=== PATIENT | male | born 1940 | race Caucasian/White ===

== ENCOUNTER 2017-05-15 08:14 | Outpatient (CLI) | payer MEDICARE, OTHER ==
--- NOTE | 2017-05-15 10:49 | CT ---
ABDOMEN CT WITH AND WITHOUT CONTRAST PELVIC CT WITH AND WITHOUT CONTRAST: History: Microscopic hematuria. Comparison: None. Technique: Abdomen and pelvis CT are performed with IV contrast. Coronal reformatted images are perf ormed. FINDINGS: ABDOMEN CT: Chronic changes and dependent atelectatic changes in the lung bases. Heart size is within normal [place] its. No significant pericardial fluid. Coronal calcifications are identified. The descending thoraci c aorta and abdominal aorta have a normal caliber. There is atherosclerosis. No periaortic fat stran ding. Symmetric attenuation of the psoas muscles. Gallbladder surgically absent. Liver, spleen, pancreas, and adrenal glands have appropriate enhancement. No gastrohepatic or retrocrural lymphadenopathy. No mesenteric mass, lymphadenopathy, free air or free fluid. Limited evaluation of the alimentary canal due to lack of oral contrast. Normal caliber bowel loops. No evidence of bowel obstruction. Ileocecal junction is normal. Appendix is not appreciated. No inf lammation of the cecal apex. Scattered fecal material in a nondistended, nondilated colon. Sigmoid c olon diverticulosis, without evidence of diverticulitis. Bilaterally, no hydronephrosis or nephrolithiasis. There is minimal nonspecific bilateral perinephri c fat stranding. Emanating from the lower pole of the left kidney is a 4.8 x 5.0 cm cyst. Emanating from the superior aspect of the left kidney is a 10.5 x 10.2 cm cyst. There is symmetric enhancement of the kidneys. On the post contrast images, there is a subcentimeter hypodensity in the inferior p ole left kidney measuring 1 cm and too small to characterize. There is symmetric excretion into norm al appearing bilateral intrarenal collecting systems. Bilateral ureters have a normal caliber. No hy droureter, periureteral fat stranding or ureterolithiasis. There are no filling defects on the delay ed images. PELVIC CT: There is mass effect upon the floor of the urinary bladder due to prostatic hypertrophy. No mucosal abnormalities. No pelvic mass, lymphadenopathy, free air or free fluid. There are no osteoblastic or osteolytic lesions. IMPRESSION: No evidence of nephrolithiasis or obstructive uropathy. 2. Mass effect upon the floor of the urinary bladder due to prostatic hypertrophy. No obvious mucosa l abnormality. If there is concern, consider cystoscopy. 3. Left renal cyst. 4. Indeterminate hyperdensity in the lower pole left kidney, too small to further characterize. 5. Diverticulosis without evidence of diverticulitis. POS: [id number]
[2017-05-15] MEDS ORDERED: Iopamidol 370 76% 100 ML VIAL ONE (15:23)
== END 2017-05-15 08:15 | disposition home or self-care (01) ==
LOC: CT 08:14
PROVIDERS: ATTEND Urology
DX: R31.29 Other microscopic hematuria (principal); N40.0 Benign prostatic hyperplasia without lower urinary tract symptoms; N28.1 Cyst of kidney, acquired; K57.90 Diverticulosis of intestine, part unspecified, without perforation or abscess without bleeding
CPT/HCPCS: 74178

== ENCOUNTER 2021-03-15 17:59 | Inpatient (IN) | payer MEDICARE, OTHER ==
[2021-03-15 18:19] LABS: #Eosinphils 0.3 thou/uL (0.0-0.7); #Lymphocytes 2.1 thou/uL (1.20-3.40); #Monocytes 0.8 thou/uL (0.11-0.59); #Neutrophils 5.2 thou/uL (1.40-6.50); %Basophils 0.3 % (0.0-1.0); %Lymphocytes 25.2 % (21.0-51.0); %Monocytes 9.1 % (0.0-10.0); %Neutrophils 62.3 % (42.0-75.0); Hemoglobin 13.1 g/dL (14.0-18.0); Mean Corpuscular HGB CONC 33.8 g/dL (32.0-36.0); Mean Corpuscular Hemoglobin 30.8 pg (27.0-31.0); Mean Platelet Volume 7.7 fL (7.4-10.4); Platelet Count 156 thou/uL (130-400); RBC Distribution Width 12.8 % (11.5-14.5); Red Blood Cell (RBC) Count 4.24 mill/uL (4.70-6.10); White Blood Cell (WBC) Count 8.3 thou/uL (4.8-10.8)
[2021-03-15 18:29] LABS: Prothrombin Time 14.1 sec (12.0-14.7)
[2021-03-15 18:30] LABS: PTT 33.5 sec (22.9-36.1)
[2021-03-15 18:31] LABS: INR-International Normal Ratio 1.1
[2021-03-15 18:34] LABS: ALT (SGPT) 15 U/L (8-55); AST (SGOT) 14 U/L (5-34); Albumin 3.4 g/dL (3.4-4.8); Alkaline Phosphatase 66 U/L (40-110); Anion Gap 12 mmol/L (10-20); BUN (Urea Nitrogen) 25 mg/dL (8.4-25.7); Bilirubin, Total 0.3 mg/dL (0.2-1.2); CK (CPK) 99 U/L (30-200); Calc. Creatinine Clearance 0 mL/min (70-130); Calcium 8.7 mg/dL (7.8-10.44); Carbon Dioxide 24 mmol/L (23-31); Chloride 106 mmol/L (98-107); Globulin 2.6 g/dL (2.4-3.5); Glucose 150 mg/dL (83-110); Potassium 3.5 mmol/L (3.5-5.1); Sodium 138 mmol/L (136-145)
[2021-03-15] MEDS ORDERED: Aspirin Chewable 81 MG TAB ONE (19:17)
[2021-03-15] MEDS ORDERED: Acetaminophen 325 MG TAB PO PRN (23:10)
[2021-03-15] MEDS ORDERED: hydrALAZINE 20 MG/ML VIAL SLOW IVP PRN (23:10)
[2021-03-15 23:12] LABS: SARS-CoV-2 NAA Rapid Test Not Detected (NotDetected)
[2021-03-15 23:39] VITALS: BMI 34.5
[2021-03-16] MEDS ORDERED: Atropine Sulfate 1 mg/10 ml Syringe ONE (01:42)
[2021-03-16] MEDS ORDERED: Atropine Sulfate 1 mg/1 ml Vial IVP SCH (01:45)
[2021-03-16] MEDS ORDERED: Aspirin Chewable 81 MG TAB ONE (08:20)
[2021-03-16] MEDS ORDERED: Enoxaparin Sodium 30 MG/0.3 ML SYRINGE ONE (08:20)
[2021-03-16 09:09] LABS: #Eosinphils 0.2 thou/uL (0.0-0.7); #Lymphocytes 1.5 thou/uL (1.20-3.40); #Monocytes 0.6 thou/uL (0.11-0.59); #Neutrophils 5.6 thou/uL (1.40-6.50); %Basophils 0.2 % (0.0-1.0); %Lymphocytes 18.8 % (21.0-51.0); %Monocytes 7.6 % (0.0-10.0); %Neutrophils 70.4 % (42.0-75.0); Hemoglobin 15.2 g/dL (14.0-18.0); Mean Corpuscular HGB CONC 32.9 g/dL (32.0-36.0); Mean Corpuscular Volume 91.2 fL (78.0-98.0); Mean Platelet Volume 7.9 fL (7.4-10.4); Platelet Count 152 thou/uL (130-400); RBC Distribution Width 12.9 % (11.5-14.5); Red Blood Cell (RBC) Count 5.07 mill/uL (4.70-6.10)
[2021-03-16 09:19] LABS: Hemoglobin A1c 5.4 % (4.0-6.0)
[2021-03-16 09:36] LABS: Anion Gap 10 mmol/L (10-20); BUN (Urea Nitrogen) 18 mg/dL (8.4-25.7); Calc. Creatinine Clearance 72 mL/min (70-130); Calcium 9.5 mg/dL (7.8-10.44); Carbon Dioxide 29 mmol/L (23-31); Cardiac Risk 3.2 (Less than 4.5); Chloride 104 mmol/L (98-107); Cholesterol 117 mg/dl (< 200 Desired); Glucose 94 mg/dL (83-110); HDL Cholesterol 37 mg/dL (>60 Neg Risk); Iron 53 ug/dL (65-175); Iron Binding Capacity, Total 275 mcg/dL (261-462); LDL Cholesterol, Calculated 59 mg/dL; Potassium 3.6 mmol/L (3.5-5.1); Sodium 139 mmol/L (136-145); Triglycerides 103 mg/dL (Less than 150)
[2021-03-16 09:37] LABS: Iron 48 ug/dL (65-175); Iron Binding Capacity, Total 278 mcg/dL (261-462)
[2021-03-16] MEDS: Aspirin 81 mg Enteric Coated Tablet PO SCH (09:38)
[2021-03-16] MEDS: Enoxaparin Sodium 30 MG/0.3 ML SYRINGE SC SCH (09:38)
[2021-03-16 09:54] LABS: Ferritin 461.7 ng/mL (22-322); Thyroid Stimulating Hormone 0.6782 uIU/mL (0.35-4.94)
[2021-03-16 15:15] LABS: #Eosinphils 0.3 thou/uL (0.0-0.7); #Lymphocytes 1.8 thou/uL (1.20-3.40); #Monocytes 0.8 thou/uL (0.11-0.59); #Neutrophils 6.9 thou/uL (1.40-6.50); %Basophils 0.1 % (0.0-1.0); %Eosinophils 3.5 % (0.0-10.0); %Monocytes 8.2 % (0.0-10.0); %Neutrophils 70.2 % (42.0-75.0); Hemoglobin 15.2 g/dL (14.0-18.0); Mean Platelet Volume 7.6 fL (7.4-10.4); Platelet Count 158 thou/uL (130-400); RBC Distribution Width 12.9 % (11.5-14.5); Red Blood Cell (RBC) Count 4.91 mill/uL (4.70-6.10); White Blood Cell (WBC) Count 9.8 thou/uL (4.8-10.8)
[2021-03-16 15:38] LABS: ALT (SGPT) 16 U/L (8-55); AST (SGOT) 16 U/L (5-34); Albumin 3.8 g/dL (3.4-4.8); Alkaline Phosphatase 70 U/L (40-110); Anion Gap 12 mmol/L (10-20); BUN (Urea Nitrogen) 18 mg/dL (8.4-25.7); Bilirubin, Total 0.5 mg/dL (0.2-1.2); Calc. Creatinine Clearance 66 mL/min (70-130); Calcium 9.4 mg/dL (7.8-10.44); Carbon Dioxide 26 mmol/L (23-31); Chloride 105 mmol/L (98-107); Globulin 3.1 g/dL (2.4-3.5); Glucose 104 mg/dL (83-110); Potassium 3.7 mmol/L (3.5-5.1); Protein, Total 6.9 g/dL (5.8-8.1); Sodium 139 mmol/L (136-145)
[2021-03-16] MEDS ORDERED: Atorvastatin Calcium 40 MG TAB PO SCH (21:00)
[2021-03-17 05:41] LABS: #Basophils 0.1 thou/uL (0.0-0.2); #Eosinphils 0.4 thou/uL (0.0-0.7); #Lymphocytes 2.1 thou/uL (1.20-3.40); #Monocytes 0.9 thou/uL (0.11-0.59); #Neutrophils 5.7 thou/uL (1.40-6.50); %Basophils 0.6 % (0.0-1.0); %Eosinophils 3.9 % (0.0-10.0); %Lymphocytes 22.7 % (21.0-51.0); %Monocytes 9.4 % (0.0-10.0); %Neutrophils 63.4 % (42.0-75.0); Hemoglobin 14.7 g/dL (14.0-18.0); Mean Corpuscular HGB CONC 33.2 g/dL (32.0-36.0); Mean Corpuscular Hemoglobin 30.3 pg (27.0-31.0); Mean Corpuscular Volume 91.2 fL (78.0-98.0); Mean Platelet Volume 7.7 fL (7.4-10.4); Platelet Count 145 thou/uL (130-400); RBC Distribution Width 12.8 % (11.5-14.5); Red Blood Cell (RBC) Count 4.85 mill/uL (4.70-6.10); White Blood Cell (WBC) Count 9.1 thou/uL (4.8-10.8)
[2021-03-17 05:59] LABS: Anion Gap 7 mmol/L (10-20); BUN (Urea Nitrogen) 16 mg/dL (8.4-25.7); Calc. Creatinine Clearance 72 mL/min (70-130); Carbon Dioxide 31 mmol/L (23-31); Chloride 106 mmol/L (98-107); Potassium 4.4 mmol/L (3.5-5.1); Sodium 140 mmol/L (136-145)
[2021-03-17 06:00] LABS: ALT (SGPT) 15 U/L (8-55); AST (SGOT) 15 U/L (5-34); Albumin 3.5 g/dL (3.4-4.8); Alkaline Phosphatase 66 U/L (40-110); Bilirubin, Total 0.4 mg/dL (0.2-1.2); Calcium 9.4 mg/dL (7.8-10.44); Globulin 2.9 g/dL (2.4-3.5); Glucose 93 mg/dL (83-110); Protein, Total 6.4 g/dL (5.8-8.1)
[2021-03-17 08:03] VITALS: BP 156/85; TEMP 97.7
[2021-03-17] MEDS: Enoxaparin Sodium 30 MG/0.3 ML SYRINGE SC SCH (08:25)
[2021-03-17] MEDS: Aspirin 81 mg Enteric Coated Tablet PO SCH (08:25)
[2021-03-18] MEDS ORDERED: Aspirin Chewable 81 MG TAB PO SCH (09:00)
== END 2021-03-17 09:36 | disposition home or self-care (01) | DRG 69 ==
LOC: ERS 17:59 → ERHOLD 21:36 → 3SE 03-16 18:38
PROVIDERS: ADMIT Internal Medicine; ATTEND Student in an Organized Health Care Education/Training Program
DX: G45.9 Transient cerebral ischemic attack, unspecified (principal); G93.41 Metabolic encephalopathy; N18.30 Chronic kidney disease, stage 3 unspecified; N40.0 Benign prostatic hyperplasia without lower urinary tract symptoms; E03.9 Hypothyroidism, unspecified; I44.0 Atrioventricular block, first degree; D63.1 Anemia in chronic kidney disease; E66.9 Obesity, unspecified; Z20.822 Contact with and (suspected) exposure to COVID-19; I25.10 Atherosclerotic heart disease of native coronary artery without angina pectoris; E78.5 Hyperlipidemia, unspecified; I12.9 Hypertensive chronic kidney disease with stage 1 through stage 4 chronic kidney disease, or unspecified chronic kidney disease; F03.90 Unspecified dementia, unspecified severity, without behavioral disturbance, psychotic disturbance, mood disturbance, and anxiety; Z82.49 Family history of ischemic heart disease and other diseases of the circulatory system; Z68.34 Body mass index [BMI] 34.0-34.9, adult; Z86.73 Personal history of transient ischemic attack (TIA), and cerebral infarction without residual deficits; Z95.5 Presence of coronary angioplasty implant and graft; Z90.49 Acquired absence of other specified parts of digestive tract; Z87.891 Personal history of nicotine dependence; Z79.82 Long term (current) use of aspirin; Z79.51 Long term (current) use of inhaled steroids; Z79.899 Other long term (current) drug therapy
CPT/HCPCS: 36415; 36416; 70450; 70551; 80048; 80053; 80061; 82550; 82728; 83036; 83540; 83550; 84443; 84484; 85025; 85610; 85730; 86850; 86900; 86901; 93005; 93880; J0461; J1650; U0002

== ENCOUNTER 2023-03-14 18:57 | Inpatient (IN) | payer MEDICARE, OTHER ==
[2023-03-14 21:00] LABS: #Basophils 0.1 thou/uL (0.0-0.2); #Eosinphils 0.5 thou/uL (0.0-0.7); #Monocytes 0.9 thou/uL (0.11-0.59); #Neutrophils 5.9 thou/uL (1.40-6.50); %Basophils 0.5 % (0.0-1.0); %Eosinophils 4.8 % (0.0-10.0); %Lymphocytes 30.1 % (21.0-51.0); %Monocytes 8.2 % (0.0-10.0); Hemoglobin 13.5 g/dL (14.0-18.0); Mean Corpuscular HGB CONC 32.1 g/dL (32.0-36.0); Mean Corpuscular Hemoglobin 29.4 pg (27.0-31.0); Mean Corpuscular Volume 91.5 fl (78.0-98.0); Mean Platelet Volume 9.8 fL (7.4-10.4); Platelet Count 190 10x3/uL (130-400); RBC Distribution Width 14.9 % (11.5-14.5); Red Blood Cell (RBC) Count 4.59 mill/uL (4.70-6.10); White Blood Cell (WBC) Count 10.6 10x3/uL (4.8-10.8)
[2023-03-14 21:29] LABS: Bacteria/HPF 4+ HPF (None Seen); Bilirubin Negative (Negative); Blood, Urine 3+ (Negative); CAUTI Indications for Culture Alt mental st,lethar; Clarity Extra Turbid (Clear); Glucose, Urine (Dipstick) Normal (Negative); Ketone, Urine Negative (Negative); Leukocyte 500 Leu/uL (Negative); Nitrite Negative (Negative); Protein, Urine (Dipstick) 300 mg/dL (Neg-Trace); RBC/HPF Greater than 50 HPF (0-3); Squamous Epithelial None Seen HPF (0-3); Urobilinogen Normal mg/dL (Less than 2); WBC/HPF Greater than 50 HPF (0-3)
[2023-03-14 21:31] LABS: Urine Culture Reflex Yes Yes
[2023-03-14 21:42] LABS: ALT (SGPT) 9 U/L (8-55); AST (SGOT) 13 U/L (5-34); Albumin 3.8 g/dL (3.4-4.8); Alkaline Phosphatase 91 U/L (40-110); Anion Gap 16 mmol/L (10-20); BUN (Urea Nitrogen) 27 mg/dL (8.4-25.7); Bilirubin, Total 0.4 mg/dL (0.2-1.2); Calc. Creatinine Clearance 0 mL/min (70-130); Calcium 9.4 mg/dL (7.8-10.44); Carbon Dioxide 21 mmol/L (23-31); Chloride 103 mmol/L (98-107); Estimated GFR 30; Globulin 2.9 g/dL (2.4-3.5); Glucose 109 mg/dL (83-110); Potassium 3.6 mmol/L (3.5-5.1); Protein, Total 6.7 g/dL (5.8-8.1); Sodium 136 mmol/L (136-145)
[2023-03-14] MEDS ORDERED: Vancomycin 1 GM/200 ML (FROZEN) BAG ONE (23:09)
[2023-03-14] MEDS ORDERED: Cefepime 2 GM VIAL ONE (23:09)
[2023-03-15] MEDS ORDERED: Senokot S 8.6-50 MG TAB PO PRN (01:08)
[2023-03-15] MEDS ORDERED: Ondansetron ODT 4 MG TAB PO PRN (01:08)
[2023-03-15 01:13] VITALS: BMI 29.1
[2023-03-15] MEDS: Levothyroxine Sodium 75 MCG TAB PO SCH (05:53)
[2023-03-15 09:53] LABS: #Basophils 0.1 thou/uL (0.0-0.2); #Eosinphils 0.7 thou/uL (0.0-0.7); #Monocytes 0.7 thou/uL (0.11-0.59); %Basophils 0.6 % (0.0-1.0); %Eosinophils 8.2 % (0.0-10.0); %Lymphocytes 23.6 % (21.0-51.0); %Monocytes 7.8 % (0.0-10.0); %Neutrophils 59.4 % (42.0-75.0); Hemoglobin 12.7 g/dL (14.0-18.0); Mean Corpuscular HGB CONC 31.8 g/dL (32.0-36.0); Mean Corpuscular Hemoglobin 28.9 pg (27.0-31.0); Mean Corpuscular Volume 91.1 fl (78.0-98.0); Mean Platelet Volume 10.2 fL (7.4-10.4); Platelet Count 149 10x3/uL (130-400); RBC Distribution Width 14.9 % (11.5-14.5); Red Blood Cell (RBC) Count 4.39 mill/uL (4.70-6.10); White Blood Cell (WBC) Count 8.4 10x3/uL (4.8-10.8)
[2023-03-15 10:16] LABS: Anion Gap 12 mmol/L (10-20); BUN (Urea Nitrogen) 22 mg/dL (8.4-25.7); Calc. Creatinine Clearance 44 mL/min (70-130); Calcium 9.4 mg/dL (7.8-10.44); Carbon Dioxide 23 mmol/L (23-31); Chloride 108 mmol/L (98-107); Estimated GFR 42; Glucose 110 mg/dL (83-110); Potassium 3.4 mmol/L (3.5-5.1); Sodium 140 mmol/L (136-145)
[2023-03-15] MEDS: cefTRIAXone\\ROCEPHIN 1 GM in Sodium Chloride 0.9% 100 ML IVPB SCH (10:20)
[2023-03-15] MEDS: Tamsulosin HCl 0.4 MG CAP PO SCH (10:20)
[2023-03-15] MEDS: Sertraline 100 MG TAB PO SCH (10:20)
[2023-03-15] MEDS: Losartan 25 MG TAB PO SCH (10:21)
[2023-03-15] MEDS: Cholecalciferol 1,000 UNITS (25 MCG) TAB PO SCH (10:21)
[2023-03-15] MEDS: Famotidine 20 MG TAB PO SCH (10:21)
[2023-03-15] MEDS: Aspirin 81 mg Enteric Coated Tablet PO SCH (10:21)
[2023-03-15] MEDS: DorzolamidE/Timolol 2%/0.5% Ophth Soln 10 ml Bottle EA EYE SCH ×2 (10:29→21:28)
[2023-03-15] MEDS ORDERED: Potassium Chloride 20 MEQ TAB PO SCH (17:00)
[2023-03-15] MEDS: Donepezil HCl 10 MG TAB PO SCH (21:27)
[2023-03-15] MEDS: Atorvastatin Calcium 20 MG TAB PO SCH (21:27)
[2023-03-16] MEDS: Levothyroxine Sodium 75 MCG TAB PO SCH (06:02)
[2023-03-16] MEDS: Cholecalciferol 1,000 UNITS (25 MCG) TAB PO SCH (08:33)
[2023-03-16] MEDS: cefTRIAXone\\ROCEPHIN 1 GM in Sodium Chloride 0.9% 100 ML IVPB SCH (08:33)
[2023-03-16] MEDS: Aspirin 81 mg Enteric Coated Tablet PO SCH (08:34)
[2023-03-16] MEDS: DorzolamidE/Timolol 2%/0.5% Ophth Soln 10 ml Bottle EA EYE SCH ×2 (08:34→22:06)
[2023-03-16] MEDS: Famotidine 20 MG TAB PO SCH (08:34)
[2023-03-16] MEDS: Losartan 25 MG TAB PO SCH (08:34)
[2023-03-16] MEDS: Tamsulosin HCl 0.4 MG CAP PO SCH (08:34)
[2023-03-16 09:00] LABS: Anion Gap 10 mmol/L (10-20); BUN (Urea Nitrogen) 15 mg/dL (8.4-25.7); Calc. Creatinine Clearance 52 mL/min (70-130); Calcium 9.3 mg/dL (7.8-10.44); Carbon Dioxide 24 mmol/L (23-31); Chloride 110 mmol/L (98-107); Estimated GFR 50; Glucose 91 mg/dL (83-110); Potassium 4.3 mmol/L (3.5-5.1); Sodium 140 mmol/L (136-145)
[2023-03-16] MEDS: Sertraline 100 MG TAB PO SCH (10:13)
[2023-03-16] MEDS ORDERED: CefTAZidime\\FORTAZ 1 GM in Sodium Chloride 0.9% 100 ML IVPB SCH (14:00)
[2023-03-16] MEDS: Cefepime 1 GM in Sodium Chloride 0.9% 100 ML IVPB SCH (14:58)
[2023-03-16] MEDS: Donepezil HCl 10 MG TAB PO SCH (22:05)
[2023-03-16] MEDS: Atorvastatin Calcium 20 MG TAB PO SCH (22:06)
[2023-03-17] MEDS: Cefepime 1 GM in Sodium Chloride 0.9% 100 ML IVPB SCH ×2 (03:04→17:24)
[2023-03-17] MEDS: Levothyroxine Sodium 75 MCG TAB PO SCH (05:59)
[2023-03-17] MEDS: Aspirin 81 mg Enteric Coated Tablet PO SCH (08:05)
[2023-03-17] MEDS: Sertraline 100 MG TAB PO SCH (08:05)
[2023-03-17] MEDS: Famotidine 20 MG TAB PO SCH (08:05)
[2023-03-17] MEDS: Cholecalciferol 1,000 UNITS (25 MCG) TAB PO SCH (08:05)
[2023-03-17] MEDS: DorzolamidE/Timolol 2%/0.5% Ophth Soln 10 ml Bottle EA EYE SCH ×2 (08:05→21:05)
[2023-03-17] MEDS: Tamsulosin HCl 0.4 MG CAP PO SCH (08:05)
[2023-03-17] MEDS: Losartan 25 MG TAB PO SCH (08:11)
[2023-03-17] MEDS: Atorvastatin Calcium 20 MG TAB PO SCH (20:46)
[2023-03-17] MEDS: Donepezil HCl 10 MG TAB PO SCH (20:46)
[2023-03-18] MEDS: Cefepime 1 GM in Sodium Chloride 0.9% 100 ML IVPB SCH ×2 (03:00→14:44)
[2023-03-18] MEDS: Levothyroxine Sodium 75 MCG TAB PO SCH (05:38)
[2023-03-18] MEDS: Cholecalciferol 1,000 UNITS (25 MCG) TAB PO SCH (08:32)
[2023-03-18] MEDS: Tamsulosin HCl 0.4 MG CAP PO SCH (08:33)
[2023-03-18] MEDS: Sertraline 100 MG TAB PO SCH (08:33)
[2023-03-18] MEDS: Losartan 25 MG TAB PO SCH (08:33)
[2023-03-18] MEDS: Aspirin 81 mg Enteric Coated Tablet PO SCH (08:33)
[2023-03-18] MEDS: Famotidine 20 MG TAB PO SCH (08:33)
[2023-03-18] MEDS: DorzolamidE/Timolol 2%/0.5% Ophth Soln 10 ml Bottle EA EYE SCH ×2 (08:33→20:32)
[2023-03-18] MEDS ORDERED: hydrALAZINE 25 MG TAB PO PRN (11:09)
[2023-03-18] MEDS ORDERED: Sodium Chloride 0.9% 1,000 ML IV SCH (14:15)
[2023-03-18 19:35] VITALS: BP 150/79; TEMP 97.2
[2023-03-18] MEDS: Atorvastatin Calcium 20 MG TAB PO SCH (20:32)
[2023-03-18] MEDS: Donepezil HCl 10 MG TAB PO SCH (20:32)
== END 2023-03-18 21:00 | disposition home or self-care (01) | DRG 683 ==
LOC: ERS 18:57 → T4-B 23:38
PROVIDERS: ADMIT Student in an Organized Health Care Education/Training Program; ATTEND Internal Medicine
DX: N17.9 Acute kidney failure, unspecified (principal); E87.20 Acidosis, unspecified; N13.8 Other obstructive and reflux uropathy; E86.9 Volume depletion, unspecified; I95.9 Hypotension, unspecified; I25.10 Atherosclerotic heart disease of native coronary artery without angina pectoris; E78.5 Hyperlipidemia, unspecified; F03.90 Unspecified dementia, unspecified severity, without behavioral disturbance, psychotic disturbance, mood disturbance, and anxiety; H40.9 Unspecified glaucoma; I12.9 Hypertensive chronic kidney disease with stage 1 through stage 4 chronic kidney disease, or unspecified chronic kidney disease; E87.6 Hypokalemia; Y83.8 Other surgical procedures as the cause of abnormal reaction of the patient, or of later complication, without mention of misadventure at the time of the procedure; N40.1 Benign prostatic hyperplasia with lower urinary tract symptoms; Z95.5 Presence of coronary angioplasty implant and graft; Z86.73 Personal history of transient ischemic attack (TIA), and cerebral infarction without residual deficits; Z90.49 Acquired absence of other specified parts of digestive tract; Z98.890 Other specified postprocedural states
CPT/HCPCS: 36415; 71045; 76857; 80048; 80053; 81001; 83605; 85025; 87040; 87086; 93005; 96361; 96365; 96366; J0692; J0696; J1650; J3370-JW; J3490; J7050

== ENCOUNTER 2023-06-05 02:29 | Inpatient (IN) | payer MEDICARE, OTHER ==
[2023-06-05 03:26] LABS: #Monocytes 0.7 thou/uL (0.11-0.59); #Neutrophils 16.1 thou/uL (1.40-6.50); %Basophils 0.2 % (0.0-1.0); %Eosinophils 0.2 % (0.0-10.0); %Lymphocytes 2.2 % (21.0-51.0); %Monocytes 4.3 % (0.0-10.0); %Neutrophils 92.4 % (42.0-75.0); Hematocrit 45.1 % (42.0-52.0); Hemoglobin 14.2 g/dL (14.0-18.0); Mean Corpuscular HGB CONC 31.5 g/dL (32.0-36.0); Mean Corpuscular Hemoglobin 28.7 pg (27.0-31.0); Mean Corpuscular Volume 91.3 fl (78.0-98.0); Mean Platelet Volume 9.3 fL (7.4-10.4); Platelet Count 190 10x3/uL (130-400); RBC Distribution Width 14.6 % (11.5-14.5); Red Blood Cell (RBC) Count 4.94 mill/uL (4.70-6.10); White Blood Cell (WBC) Count 17.4 10x3/uL (4.8-10.8)
[2023-06-05 03:37] LABS: INR-International Normal Ratio 1.1; Prothrombin Time 14.2 sec (12.0-14.7)
[2023-06-05 03:47] LABS: ALT (SGPT) 14 U/L (8-55); AST (SGOT) 16 U/L (5-34); Alkaline Phosphatase 86 U/L (40-110); Anion Gap 15 mmol/L (10-20); BUN (Urea Nitrogen) 15 mg/dL (8.4-25.7); Bilirubin, Total 0.8 mg/dL (0.2-1.2); Calc. Creatinine Clearance 0 mL/min (70-130); Calcium 9.5 mg/dL (7.8-10.44); Carbon Dioxide 24 mmol/L (23-31); Chloride 104 mmol/L (98-107); Estimated GFR 52; Globulin 2.9 g/dL (2.4-3.5); Glucose 108 mg/dL (83-110); Magnesium 1.8 mg/dL (1.6-2.6); Potassium 3.1 mmol/L (3.5-5.1); Protein, Total 6.9 g/dL (5.8-8.1); Sodium 140 mmol/L (136-145)
[2023-06-05 03:50] LABS: Troponin I Less than 0.010 ng/mL (< 0.028)
[2023-06-05] MEDS ORDERED: Potassium Chloride 20 MEQ TAB ONE (04:06)
[2023-06-05 04:13] LABS: Bacteria/HPF 4+ HPF (None Seen); Bilirubin Negative (Negative); Blood, Urine 3+ (Negative); CAUTI Indications for Culture Alt mental st,lethar; Clarity Extra Turbid (Clear); Glucose, Urine (Dipstick) Normal (Negative); Ketone, Urine Negative (Negative); Leukocyte 500 Leu/uL (Negative); Nitrite 2+ (Negative); Protein, Urine (Dipstick) 30 mg/dL (Neg-Trace); RBC/HPF Greater than 50 HPF (0-3); Specific Gravity, Urine 1.011 (1.002-1.036); Squamous Epithelial None Seen HPF (0-3); Urobilinogen Normal mg/dL (Less than 2); WBC/HPF Greater than 50 HPF (0-3)
[2023-06-05 04:14] LABS: Urine Culture Reflex Yes Yes
[2023-06-05] MEDS ORDERED: Acetaminophen 650 MG Suppository PR PRN (05:09)
[2023-06-05] MEDS ORDERED: Ondansetron ODT 4 MG TAB PO PRN (05:09)
[2023-06-05] MEDS ORDERED: Ondansetron PF 4 MG/2 ML Vial IVP PRN (05:09)
[2023-06-05] MEDS ORDERED: Acetaminophen 325 MG TAB PO PRN (05:09)
[2023-06-05] MEDS ORDERED: cefTRIAXone (ROCEPHIN) 2 GM VIAL ONE (05:59)
[2023-06-05] MEDS ORDERED: Sodium Chloride 0.9% 100 ML ONE (05:59)
[2023-06-05 06:14] VITALS: BMI 30.8
[2023-06-05] MEDS: Sodium Chloride 0.9% 1,000 ML IV SCH ×2 (07:22→15:00)
[2023-06-05] MEDS ORDERED: Potassium Bicarbonate/Cit Ac 20 MEQ TAB PO SCH (08:15)
[2023-06-05] MEDS ORDERED: Potassium Bicarbonate/Cit Ac 20 MEQ TAB ONE (09:04)
[2023-06-05] MEDS: Melatonin 3 MG TAB PO PRN (23:23)
[2023-06-06] MEDS: cefTRIAXone\\ROCEPHIN 1 GM in Sodium Chloride 0.9% 100 ML IVPB SCH (04:27)
[2023-06-06 05:45] LABS: #Basophils 0.1 thou/uL (0.0-0.2); #Eosinphils 0.4 thou/uL (0.0-0.7); #Monocytes 1.2 thou/uL (0.11-0.59); #Neutrophils 7.6 thou/uL (1.40-6.50); %Basophils 0.4 % (0.0-1.0); %Eosinophils 3.9 % (0.0-10.0); %Lymphocytes 17.4 % (21.0-51.0); %Monocytes 10.2 % (0.0-10.0); %Neutrophils 67.7 % (42.0-75.0); Hematocrit 36.8 % (42.0-52.0); Hemoglobin 11.7 g/dL (14.0-18.0); Mean Corpuscular HGB CONC 31.8 g/dL (32.0-36.0); Mean Corpuscular Hemoglobin 28.9 pg (27.0-31.0); Mean Corpuscular Volume 90.9 fl (78.0-98.0); Mean Platelet Volume 9.8 fL (7.4-10.4); Platelet Count 161 10x3/uL (130-400); RBC Distribution Width 14.7 % (11.5-14.5); Red Blood Cell (RBC) Count 4.05 mill/uL (4.70-6.10); White Blood Cell (WBC) Count 11.3 10x3/uL (4.8-10.8)
[2023-06-06 06:03] LABS: Anion Gap 11 mmol/L (10-20); BUN (Urea Nitrogen) 18 mg/dL (8.4-25.7); Calc. Creatinine Clearance 61 mL/min (70-130); Calcium 8.6 mg/dL (7.8-10.44); Carbon Dioxide 25 mmol/L (23-31); Chloride 105 mmol/L (98-107); Estimated GFR 57; Glucose 96 mg/dL (83-110); Potassium 4.2 mmol/L (3.5-5.1); Sodium 137 mmol/L (136-145)
[2023-06-06] MEDS: Melatonin 3 MG TAB PO PRN (22:09)
[2023-06-07 05:33] LABS: #Eosinphils 0.3 thou/uL (0.0-0.7); #Neutrophils 6.4 thou/uL (1.40-6.50); %Basophils 0.4 % (0.0-1.0); %Eosinophils 3.5 % (0.0-10.0); %Lymphocytes 17.9 % (21.0-51.0); %Monocytes 10.8 % (0.0-10.0); Hematocrit 37.5 % (42.0-52.0); Hemoglobin 12.1 g/dL (14.0-18.0); Mean Corpuscular HGB CONC 32.3 g/dL (32.0-36.0); Mean Corpuscular Volume 89.9 fl (78.0-98.0); Mean Platelet Volume 9.6 fL (7.4-10.4); Platelet Count 178 10x3/uL (130-400); RBC Distribution Width 14.4 % (11.5-14.5); Red Blood Cell (RBC) Count 4.17 mill/uL (4.70-6.10); White Blood Cell (WBC) Count 9.6 10x3/uL (4.8-10.8)
[2023-06-07 05:58] LABS: Anion Gap 14 mmol/L (10-20); BUN (Urea Nitrogen) 15 mg/dL (8.4-25.7); Calc. Creatinine Clearance 70 mL/min (70-130); Carbon Dioxide 23 mmol/L (23-31); Chloride 105 mmol/L (98-107); Estimated GFR 68; Glucose 90 mg/dL (83-110); Potassium 3.9 mmol/L (3.5-5.1); Sodium 138 mmol/L (136-145)
[2023-06-07] MEDS: cefTRIAXone\\ROCEPHIN 1 GM in Sodium Chloride 0.9% 100 ML IVPB SCH (06:23)
[2023-06-07] MEDS: Aspirin 81 mg Enteric Coated Tablet PO SCH (08:55)
[2023-06-07] MEDS: Sertraline 100 MG TAB PO SCH (08:55)
[2023-06-07] MEDS: Levothyroxine Sodium 75 MCG TAB PO SCH (08:55)
[2023-06-07] MEDS: Donepezil HCl 10 MG TAB PO SCH (08:55)
[2023-06-07] MEDS ORDERED: Donepezil HCl 10 MG TAB PO SCH (09:00)
[2023-06-07] MEDS: DorzolamidE/Timolol 2%/0.5% Ophth Soln 10 ml Bottle EA EYE SCH ×2 (10:21→23:38)
[2023-06-07] MEDS: Meropenem 1 GM in Sodium Chloride 0.9% 100 ML IVPB SCH ×2 (13:30→22:34)
[2023-06-07] MEDS ORDERED: Atorvastatin Calcium 20 MG TAB PO SCH (21:00)
[2023-06-07] MEDS: Melatonin 3 MG TAB PO PRN (23:38)
[2023-06-08 06:04] LABS: #Eosinphils 0.4 thou/uL (0.0-0.7); #Monocytes 0.9 thou/uL (0.11-0.59); #Neutrophils 6.5 thou/uL (1.40-6.50); %Basophils 0.4 % (0.0-1.0); %Eosinophils 3.8 % (0.0-10.0); %Lymphocytes 19.1 % (21.0-51.0); %Monocytes 9.4 % (0.0-10.0); %Neutrophils 66.9 % (42.0-75.0); Hematocrit 38.1 % (42.0-52.0); Hemoglobin 12.2 g/dL (14.0-18.0); Mean Corpuscular Hemoglobin 28.7 pg (27.0-31.0); Mean Corpuscular Volume 89.6 fl (78.0-98.0); Mean Platelet Volume 9.7 fL (7.4-10.4); Platelet Count 179 10x3/uL (130-400); RBC Distribution Width 14.3 % (11.5-14.5); Red Blood Cell (RBC) Count 4.25 mill/uL (4.70-6.10); White Blood Cell (WBC) Count 9.7 10x3/uL (4.8-10.8)
[2023-06-08 06:31] LABS: Anion Gap 13 mmol/L (10-20); BUN (Urea Nitrogen) 14 mg/dL (8.4-25.7); Calc. Creatinine Clearance 63 mL/min (70-130); Carbon Dioxide 25 mmol/L (23-31); Chloride 104 mmol/L (98-107); Estimated GFR 59; Glucose 88 mg/dL (83-110); Potassium 3.8 mmol/L (3.5-5.1); Sodium 138 mmol/L (136-145)
[2023-06-08] MEDS: Levothyroxine Sodium 75 MCG TAB PO SCH (08:54)
[2023-06-08] MEDS: Donepezil HCl 10 MG TAB PO SCH (08:54)
[2023-06-08] MEDS: Sertraline 100 MG TAB PO SCH (08:54)
[2023-06-08] MEDS: Aspirin 81 mg Enteric Coated Tablet PO SCH (08:54)
[2023-06-08 08:55] VITALS: BP 147/74; TEMP 98.2
[2023-06-08] MEDS: DorzolamidE/Timolol 2%/0.5% Ophth Soln 10 ml Bottle EA EYE SCH (08:55)
[2023-06-08] MEDS ORDERED: Losartan 25 MG TAB PO SCH (09:00)
== END 2023-06-08 11:25 | disposition home health service (06) | DRG 698 ==
LOC: ERS 02:29 → ERHOLD 05:38 → T4-B 12:18
PROVIDERS: ADMIT Student in an Organized Health Care Education/Training Program; ATTEND Internal Medicine
DX: T83.511A Infection and inflammatory reaction due to indwelling urethral catheter, initial encounter (principal); A41.51 Sepsis due to Escherichia coli [E. coli]; I25.10 Atherosclerotic heart disease of native coronary artery without angina pectoris; F03.90 Unspecified dementia, unspecified severity, without behavioral disturbance, psychotic disturbance, mood disturbance, and anxiety; E78.5 Hyperlipidemia, unspecified; E87.6 Hypokalemia; I12.9 Hypertensive chronic kidney disease with stage 1 through stage 4 chronic kidney disease, or unspecified chronic kidney disease; R53.1 Weakness; R55 Syncope and collapse; N18.30 Chronic kidney disease, stage 3 unspecified; E03.9 Hypothyroidism, unspecified; Z79.899 Other long term (current) drug therapy; Z95.5 Presence of coronary angioplasty implant and graft; Z79.82 Long term (current) use of aspirin; Z90.49 Acquired absence of other specified parts of digestive tract; Z86.73 Personal history of transient ischemic attack (TIA), and cerebral infarction without residual deficits; Z98.890 Other specified postprocedural states
CPT/HCPCS: 36415; 70450; 71045; 80048; 80053; 81001; 83605; 83735; 83880; 84443; 84484; 85025; 85610; 85730; 87077; 87086; 87186; 93005; 96361; 96374; J0696; J1650; J2185; J3490; J7050

== ENCOUNTER 2023-06-21 13:29 | Emergency (ER) | payer MEDICARE, OTHER ==
[2023-06-21] MEDS ORDERED: Ondansetron PF 4 MG/2 ML Vial ONE (13:45)
[2023-06-21 14:12] LABS: #Eosinphils 0.1 thou/uL (0.0-0.7); #Monocytes 0.9 thou/uL (0.11-0.59); #Neutrophils 12.4 thou/uL (1.40-6.50); %Basophils 0.3 % (0.0-1.0); %Eosinophils 0.9 % (0.0-10.0); %Lymphocytes 6.9 % (21.0-51.0); %Monocytes 6.4 % (0.0-10.0); %Neutrophils 85.1 % (42.0-75.0); Hematocrit 41.2 % (42.0-52.0); Hemoglobin 13.6 g/dL (14.0-18.0); Mean Corpuscular Hemoglobin 29.2 pg (27.0-31.0); Mean Corpuscular Volume 88.6 fl (78.0-98.0); Mean Platelet Volume 9.4 fL (7.4-10.4); Platelet Count 208 10x3/uL (130-400); RBC Distribution Width 14.2 % (11.5-14.5); Red Blood Cell (RBC) Count 4.65 mill/uL (4.70-6.10); White Blood Cell (WBC) Count 14.6 10x3/uL (4.8-10.8)
[2023-06-21 14:39] LABS: ALT (SGPT) 30 U/L (8-55); AST (SGOT) 36 U/L (5-34); Albumin 3.4 g/dL (3.4-4.8); Alkaline Phosphatase 69 U/L (40-110); Anion Gap 14 mmol/L (10-20); BUN (Urea Nitrogen) 16 mg/dL (8.4-25.7); Bilirubin, Total 0.5 mg/dL (0.2-1.2); Calc. Creatinine Clearance 0 mL/min (70-130); Calcium 8.9 mg/dL (7.8-10.44); Carbon Dioxide 26 mmol/L (23-31); Chloride 100 mmol/L (98-107); Estimated GFR 56; Globulin 3.2 g/dL (2.4-3.5); Glucose 89 mg/dL (83-110); Potassium 3.9 mmol/L (3.5-5.1); Protein, Total 6.6 g/dL (5.8-8.1); Sodium 136 mmol/L (136-145)
[2023-06-21 16:06] LABS: Bilirubin Negative (Negative); Blood, Urine 3+ (Negative); CAUTI Indications for Culture < 2yrs of age; Clarity Turbid (Clear); Glucose, Urine (Dipstick) Normal (Negative); Ketone, Urine Negative (Negative); Leukocyte 500 Leu/uL (Negative); Nitrite 2+ (Negative); Protein, Urine (Dipstick) 10 mg/dL (Neg-Trace); RBC/HPF 21-50 HPF (0-3); Specific Gravity, Urine 1.008 (1.002-1.036); Squamous Epithelial None Seen HPF (0-3); Urobilinogen Normal mg/dL (Less than 2); WBC/HPF Greater than 50 HPF (0-3); pH, Urine 6.5 (5.0-9.0)
[2023-06-21 16:07] LABS: Bacteria/HPF 1+ HPF (None Seen)
[2023-06-21 16:08] LABS: Urine Culture Reflex Yes Yes
== END 2023-06-21 15:10 | disposition home or self-care (01) ==
LOC: ERS 13:29
DX: E86.0 Dehydration (principal); J18.9 Pneumonia, unspecified organism; I10 Essential (primary) hypertension; I25.10 Atherosclerotic heart disease of native coronary artery without angina pectoris; E78.5 Hyperlipidemia, unspecified; Z79.899 Other long term (current) drug therapy; Z79.82 Long term (current) use of aspirin
CPT/HCPCS: 71045; 80053; 81001; 83735; 85025; 87077; 87086; 87186; 87324; 87449; 96361; 96374; J2405

== ENCOUNTER 2023-06-25 08:46 | Emergency (ER) | payer MEDICARE, OTHER ==
[2023-06-25 10:39] LABS: #Basophils 0.1 thou/uL (0.0-0.2); #Eosinphils 0.4 thou/uL (0.0-0.7); #Monocytes 1.2 thou/uL (0.11-0.59); %Basophils 0.6 % (0.0-1.0); %Lymphocytes 14.8 % (21.0-51.0); %Monocytes 11.3 % (0.0-10.0); %Neutrophils 68.9 % (42.0-75.0); Hematocrit 39.3 % (42.0-52.0); Hemoglobin 12.8 g/dL (14.0-18.0); Mean Corpuscular HGB CONC 32.6 g/dL (32.0-36.0); Mean Corpuscular Hemoglobin 28.3 pg (27.0-31.0); Mean Corpuscular Volume 86.9 fl (78.0-98.0); Mean Platelet Volume 9.1 fL (7.4-10.4); Platelet Count 219 10x3/uL (130-400); RBC Distribution Width 13.8 % (11.5-14.5); Red Blood Cell (RBC) Count 4.52 mill/uL (4.70-6.10); White Blood Cell (WBC) Count 10.2 10x3/uL (4.8-10.8)
[2023-06-25 11:11] LABS: ALT (SGPT) 35 U/L (8-55); AST (SGOT) 30 U/L (5-34); Albumin 3.2 g/dL (3.4-4.8); Alkaline Phosphatase 63 U/L (40-110); Anion Gap 12 mmol/L (10-20); BUN (Urea Nitrogen) 10 mg/dL (8.4-25.7); Bilirubin, Total 0.4 mg/dL (0.2-1.2); Calc. Creatinine Clearance 0 mL/min (70-130); Calcium 9.1 mg/dL (7.8-10.44); Carbon Dioxide 25 mmol/L (23-31); Chloride 105 mmol/L (98-107); Estimated GFR 64; Glucose 94 mg/dL (83-110); Potassium 3.5 mmol/L (3.5-5.1); Protein, Total 6.2 g/dL (5.8-8.1); Sodium 138 mmol/L (136-145)
== END 2023-06-25 13:36 ==
LOC: ERS 08:46
DX: A04.72 Enterocolitis due to Clostridium difficile, not specified as recurrent (principal); I10 Essential (primary) hypertension; E78.5 Hyperlipidemia, unspecified; Z79.899 Other long term (current) drug therapy
CPT/HCPCS: 36415; 80053; 85025; 99285

== ENCOUNTER 2023-07-09 17:14 | Inpatient (IN) | payer MEDICARE, OTHER ==
[~2023-07-09 17:14] MED LIST: Lidocaine 2% 6 ML (Jelly) SYR ONE
[2023-07-09 17:53] LABS: #Basophils 0.1 thou/uL (0.0-0.2); #Monocytes 0.7 thou/uL (0.11-0.59); #Neutrophils 17.9 thou/uL (1.40-6.50); %Basophils 0.3 % (0.0-1.0); %Eosinophils 0.2 % (0.0-10.0); %Monocytes 3.5 % (0.0-10.0); %Neutrophils 93.5 % (42.0-75.0); Hematocrit 41.2 % (42.0-52.0); Hemoglobin 13.1 g/dL (14.0-18.0); Mean Corpuscular HGB CONC 31.8 g/dL (32.0-36.0); Mean Corpuscular Hemoglobin 28.6 pg (27.0-31.0); Mean Platelet Volume 9.4 fL (7.4-10.4); Platelet Count 173 10x3/uL (130-400); RBC Distribution Width 14.9 % (11.5-14.5); Red Blood Cell (RBC) Count 4.58 mill/uL (4.70-6.10); White Blood Cell (WBC) Count 19.1 10x3/uL (4.8-10.8)
[2023-07-09 18:16] LABS: ALT (SGPT) 24 U/L (8-55); AST (SGOT) 19 U/L (5-34); Albumin 3.5 g/dL (3.4-4.8); Alkaline Phosphatase 68 U/L (40-110); Anion Gap 11 mmol/L (10-20); BUN (Urea Nitrogen) 28 mg/dL (8.4-25.7); Bilirubin, Total 0.5 mg/dL (0.2-1.2); Calc. Creatinine Clearance 0 mL/min (70-130); Calcium 8.2 mg/dL (7.8-10.44); Carbon Dioxide 22 mmol/L (23-31); Chloride 108 mmol/L (98-107); Estimated GFR 44; Globulin 2.3 g/dL (2.4-3.5); Glucose 101 mg/dL (83-110); Potassium 3.6 mmol/L (3.5-5.1); Protein, Total 5.8 g/dL (5.8-8.1); Sodium 137 mmol/L (136-145)
[2023-07-09 18:17] LABS: Bacteria/HPF 4+ HPF (None Seen); Bilirubin Negative (Negative); Blood, Urine 3+ (Negative); CAUTI Indications for Culture Alt mental st,lethar; Clarity Turbid (Clear); Glucose, Urine (Dipstick) Normal (Negative); Ketone, Urine Negative (Negative); Leukocyte 500 Leu/uL (Negative); Nitrite Negative (Negative); Protein, Urine (Dipstick) 70 mg/dL (Neg-Trace); RBC/HPF Greater than 50 HPF (0-3); Specific Gravity, Urine 1.012 (1.002-1.036); Squamous Epithelial None Seen HPF (0-3); Urobilinogen Normal mg/dL (Less than 2); WBC/HPF Greater than 50 HPF (0-3); pH, Urine 6.5 (5.0-9.0)
[2023-07-09 18:18] LABS: Urine Culture Reflex Yes Yes
[2023-07-09 18:20] LABS: Troponin I Less than 0.010 ng/mL (< 0.028)
[2023-07-09] MEDS ORDERED: Piperacillin/Tazobactam 4.5 GM VIAL ONE (19:29)
[2023-07-09] MEDS ORDERED: Sodium Chloride 0.9% 100 ML ONE (19:30)
[2023-07-09] MEDS ORDERED: Senokot S 8.6-50 MG TAB PO PRN (22:07)
[2023-07-09] MEDS ORDERED: Acetaminophen 325 MG TAB PO PRN ×2 (22:07→22:15)
[2023-07-09] MEDS ORDERED: Ondansetron PF 4 MG/2 ML Vial IVP PRN (22:15)
[2023-07-09] MEDS ORDERED: Ondansetron ODT 4 MG TAB SL PRN (22:15)
[2023-07-09 22:35] VITALS: BMI 29.8
[2023-07-10 04:20] LABS: #Basophils 0.1 thou/uL (0.0-0.2); #Eosinphils 0.1 thou/uL (0.0-0.7); #Monocytes 1.2 thou/uL (0.11-0.59); #Neutrophils 19.7 thou/uL (1.40-6.50); %Basophils 0.3 % (0.0-1.0); %Eosinophils 0.2 % (0.0-10.0); %Lymphocytes 5.2 % (21.0-51.0); %Monocytes 5.2 % (0.0-10.0); %Neutrophils 88.7 % (42.0-75.0); Hemoglobin 11.8 g/dL (14.0-18.0); Mean Corpuscular HGB CONC 31.9 g/dL (32.0-36.0); Mean Corpuscular Hemoglobin 28.9 pg (27.0-31.0); Mean Corpuscular Volume 90.5 fl (78.0-98.0); Mean Platelet Volume 10.5 fL (7.4-10.4); Platelet Count 211 10x3/uL (130-400); Red Blood Cell (RBC) Count 4.09 mill/uL (4.70-6.10); White Blood Cell (WBC) Count 22.2 10x3/uL (4.8-10.8)
[2023-07-10] MEDS ORDERED: Piperacillin/Tazobactam 3.375 GM in Sodium Chloride 0.9% 100 ML IVPB SCH (06:00)
[2023-07-10 07:40] LABS: Anion Gap 11 mmol/L (10-20); BUN (Urea Nitrogen) 28 mg/dL (8.4-25.7); Calc. Creatinine Clearance 48 mL/min (70-130); Calcium 8.6 mg/dL (7.8-10.44); Carbon Dioxide 23 mmol/L (23-31); Chloride 106 mmol/L (98-107); Estimated GFR 45; Glucose 124 mg/dL (83-110); Potassium 3.7 mmol/L (3.5-5.1); Sodium 136 mmol/L (136-145)
[2023-07-10] MEDS ORDERED: Famotidine 20 MG TAB PO SCH (09:00)
[2023-07-10] MEDS: Aspirin 81 mg Enteric Coated Tablet PO SCH (09:10)
[2023-07-10] MEDS: Donepezil HCl 10 MG TAB PO SCH (09:10)
[2023-07-10] MEDS: Losartan 25 MG TAB PO SCH (09:11)
[2023-07-10] MEDS: Sertraline 100 MG TAB PO SCH (09:11)
[2023-07-10] MEDS: Levothyroxine Sodium 75 MCG TAB PO SCH (09:11)
[2023-07-10] MEDS ORDERED: Meropenem 1 GM in Sodium Chloride 0.9% 100 ML IVPB SCH ×3 (09:30→23:00)
[2023-07-10] MEDS: DorzolamidE/Timolol 2%/0.5% Ophth Soln 10 ml Bottle EA EYE SCH ×2 (10:20→21:22)
[2023-07-10] MEDS: Meropenem 1 GM in Sodium Chloride 0.9% 100 ML IVPB SCH (17:47)
[2023-07-10] MEDS: Atorvastatin Calcium 20 MG TAB PO SCH (21:22)
[2023-07-10] MEDS ORDERED: Sterile Water 10 ML VIAL FS PRN (23:30)
[2023-07-10] MEDS ORDERED: OLANZapine 10 MG VIAL IM SCH (23:30)
[2023-07-10] MEDS ORDERED: Melatonin 3 MG TAB PO PRN (23:41)
[2023-07-11] MEDS: Meropenem 1 GM in Sodium Chloride 0.9% 100 ML IVPB SCH ×2 (05:59→18:18)
[2023-07-11] MEDS: Losartan 25 MG TAB PO SCH (09:50)
[2023-07-11] MEDS: Levothyroxine Sodium 75 MCG TAB PO SCH (09:51)
[2023-07-11] MEDS: Donepezil HCl 10 MG TAB PO SCH (09:51)
[2023-07-11] MEDS: Sertraline 100 MG TAB PO SCH (09:51)
[2023-07-11] MEDS: Famotidine 20 MG TAB PO SCH (09:51)
[2023-07-11] MEDS: Aspirin 81 mg Enteric Coated Tablet PO SCH (09:51)
[2023-07-11] MEDS: DorzolamidE/Timolol 2%/0.5% Ophth Soln 10 ml Bottle EA EYE SCH ×2 (09:53→21:26)
[2023-07-11 10:13] LABS: #Eosinphils 0.4 thou/uL (0.0-0.7); #Monocytes 0.8 thou/uL (0.11-0.59); %Basophils 0.3 % (0.0-1.0); %Eosinophils 3.7 % (0.0-10.0); %Lymphocytes 12.8 % (21.0-51.0); %Monocytes 8.9 % (0.0-10.0); %Neutrophils 74.1 % (42.0-75.0); Hematocrit 37.2 % (42.0-52.0); Hemoglobin 11.8 g/dL (14.0-18.0); Mean Corpuscular HGB CONC 31.7 g/dL (32.0-36.0); Mean Corpuscular Hemoglobin 28.9 pg (27.0-31.0); Mean Platelet Volume 9.7 fL (7.4-10.4); Platelet Count 166 10x3/uL (130-400); RBC Distribution Width 15.4 % (11.5-14.5); Red Blood Cell (RBC) Count 4.09 mill/uL (4.70-6.10); White Blood Cell (WBC) Count 9.5 10x3/uL (4.8-10.8)
[2023-07-11 10:38] LABS: Anion Gap 12 mmol/L (10-20); BUN (Urea Nitrogen) 26 mg/dL (8.4-25.7); Calc. Creatinine Clearance 44 mL/min (70-130); Calcium 8.9 mg/dL (7.8-10.44); Carbon Dioxide 23 mmol/L (23-31); Chloride 106 mmol/L (98-107); Estimated GFR 40; Glucose 106 mg/dL (83-110); Potassium 3.9 mmol/L (3.5-5.1); Sodium 137 mmol/L (136-145)
[2023-07-11] MEDS: Atorvastatin Calcium 20 MG TAB PO SCH (21:26)
[2023-07-12 05:56] LABS: #Basophils 0.1 thou/uL (0.0-0.2); #Eosinphils 0.8 thou/uL (0.0-0.7); #Monocytes 0.8 thou/uL (0.11-0.59); #Neutrophils 5.4 thou/uL (1.40-6.50); %Basophils 0.6 % (0.0-1.0); %Eosinophils 8.6 % (0.0-10.0); %Lymphocytes 22.1 % (21.0-51.0); %Neutrophils 59.5 % (42.0-75.0); Hematocrit 38.1 % (42.0-52.0); Hemoglobin 12.2 g/dL (14.0-18.0); Mean Corpuscular Hemoglobin 28.5 pg (27.0-31.0); Mean Platelet Volume 10.2 fL (7.4-10.4); Platelet Count 174 10x3/uL (130-400); RBC Distribution Width 15.2 % (11.5-14.5); Red Blood Cell (RBC) Count 4.28 mill/uL (4.70-6.10); White Blood Cell (WBC) Count 9.1 10x3/uL (4.8-10.8)
[2023-07-12 06:18] LABS: Anion Gap 11 mmol/L (10-20); BUN (Urea Nitrogen) 20 mg/dL (8.4-25.7); Calc. Creatinine Clearance 64 mL/min (70-130); Calcium 8.7 mg/dL (7.8-10.44); Carbon Dioxide 22 mmol/L (23-31); Chloride 107 mmol/L (98-107); Estimated GFR 62; Glucose 82 mg/dL (83-110); Potassium 4.1 mmol/L (3.5-5.1); Sodium 136 mmol/L (136-145)
[2023-07-12] MEDS: Meropenem 1 GM in Sodium Chloride 0.9% 100 ML IVPB SCH (06:42)
[2023-07-12] MEDS: Levothyroxine Sodium 75 MCG TAB PO SCH (09:28)
[2023-07-12] MEDS: Famotidine 20 MG TAB PO SCH (09:28)
[2023-07-12] MEDS: Aspirin 81 mg Enteric Coated Tablet PO SCH (09:28)
[2023-07-12] MEDS: Donepezil HCl 10 MG TAB PO SCH (09:28)
[2023-07-12] MEDS: Losartan 25 MG TAB PO SCH (09:28)
[2023-07-12] MEDS: Sertraline 100 MG TAB PO SCH (09:28)
[2023-07-12] MEDS: DorzolamidE/Timolol 2%/0.5% Ophth Soln 10 ml Bottle EA EYE SCH (09:29)
[2023-07-12] MEDS ORDERED: Meropenem 1 GM in Sodium Chloride 0.9% 100 ML IVPB SCH (14:00)
[2023-07-12 16:55] VITALS: BP 144/76; TEMP 98.3
[2023-07-12] MEDS ORDERED: Famotidine 20 MG TAB PO SCH (21:00)
== END 2023-07-12 18:29 | disposition home or self-care (01) | DRG 698 ==
LOC: ERS 17:14 → 2NO 21:00
PROVIDERS: ADMIT Student in an Organized Health Care Education/Training Program; ATTEND Internal Medicine
PROC: 3E03329 Introduction of Other Anti-infective into Peripheral Vein, Percutaneous Approach (ICD-10-PCS; principal; 2023-07-09)
PROC: 0T9B30Z Drainage of Bladder with Drainage Device, Percutaneous Approach (ICD-10-PCS; 2023-07-09)
PROC: BT101ZZ Fluoroscopy of Bladder using Low Osmolar Contrast (ICD-10-PCS; 2023-07-09)
DX: T83.510A Infection and inflammatory reaction due to cystostomy catheter, initial encounter (principal); A41.51 Sepsis due to Escherichia coli [E. coli]; N17.9 Acute kidney failure, unspecified; N39.0 Urinary tract infection, site not specified; F03.90 Unspecified dementia, unspecified severity, without behavioral disturbance, psychotic disturbance, mood disturbance, and anxiety; N40.0 Benign prostatic hyperplasia without lower urinary tract symptoms; E78.5 Hyperlipidemia, unspecified; H40.9 Unspecified glaucoma; E03.9 Hypothyroidism, unspecified; N18.30 Chronic kidney disease, stage 3 unspecified; Z79.899 Other long term (current) drug therapy; I12.9 Hypertensive chronic kidney disease with stage 1 through stage 4 chronic kidney disease, or unspecified chronic kidney disease; Z79.82 Long term (current) use of aspirin; Z90.49 Acquired absence of other specified parts of digestive tract; Z98.890 Other specified postprocedural states; Z95.5 Presence of coronary angioplasty implant and graft; Z86.73 Personal history of transient ischemic attack (TIA), and cerebral infarction without residual deficits
CPT/HCPCS: 36415; 51102; 70450; 77002; 80048; 80053; 81001; 84484; 85025; 85610; 85730; 86140; 87040; 87077; 87086; 87186; 93005; 96365; C2627; J1650; J2185; J2543; J3490

== ENCOUNTER 2023-08-02 09:40 | Inpatient (IN) | payer MEDICARE, OTHER ==
[2023-08-02 10:22] LABS: #Basophils 0.1 thou/uL (0.0-0.2); #Eosinphils 0.3 thou/uL (0.0-0.7); #Monocytes 1.4 thou/uL (0.11-0.59); #Neutrophils 18.7 thou/uL (1.40-6.50); %Basophils 0.3 % (0.0-1.0); %Eosinophils 1.4 % (0.0-10.0); %Monocytes 6.3 % (0.0-10.0); %Neutrophils 84.3 % (42.0-75.0); Hematocrit 38.2 % (42.0-52.0); Hemoglobin 12.3 g/dL (14.0-18.0); Mean Corpuscular HGB CONC 32.2 g/dL (32.0-36.0); Mean Corpuscular Hemoglobin 28.7 pg (27.0-31.0); Mean Platelet Volume 9.5 fL (7.4-10.4); Platelet Count 206 10x3/uL (130-400); RBC Distribution Width 15.5 % (11.5-14.5); Red Blood Cell (RBC) Count 4.29 mill/uL (4.70-6.10); White Blood Cell (WBC) Count 22.1 10x3/uL (4.8-10.8)
[2023-08-02 10:47] LABS: ALT (SGPT) 13 U/L (8-55); AST (SGOT) 10 U/L (5-34); Albumin 3.3 g/dL (3.4-4.8); Alkaline Phosphatase 66 U/L (40-110); Anion Gap 11 mmol/L (10-20); BUN (Urea Nitrogen) 17 mg/dL (8.4-25.7); Bilirubin, Total 0.8 mg/dL (0.2-1.2); Calc. Creatinine Clearance 0 mL/min (70-130); Calcium 8.9 mg/dL (7.8-10.44); Carbon Dioxide 23 mmol/L (23-31); Chloride 104 mmol/L (98-107); Estimated GFR 40; Globulin 3.1 g/dL (2.4-3.5); Glucose 102 mg/dL (83-110); Lipase 47 U/L (8-78); Potassium 4.6 mmol/L (3.5-5.1); Protein, Total 6.4 g/dL (5.8-8.1); Sodium 133 mmol/L (136-145)
[2023-08-02 10:51] LABS: Troponin I 0.011 ng/mL (< 0.028)
[2023-08-02 12:04] LABS: Bilirubin Negative (Negative); Blood, Urine 3+ (Negative); CAUTI Indications for Culture Alt mental st,lethar; Clarity Extra Turbid (Clear); Glucose, Urine (Dipstick) Normal (Negative); Ketone, Urine Negative (Negative); Leukocyte 500 Leu/uL (Negative); Nitrite Negative (Negative); Protein, Urine (Dipstick) 200 mg/dL (Neg-Trace); RBC/HPF Greater than 50 HPF (0-3); Specific Gravity, Urine 1.015 (1.002-1.036); Squamous Epithelial None Seen HPF (0-3); Urobilinogen Normal mg/dL (Less than 2); WBC/HPF Greater than 50 HPF (0-3); pH, Urine 7.5 (5.0-9.0)
[2023-08-02 12:10] LABS: Bacteria/HPF 1+ HPF (None Seen)
[2023-08-02 12:11] LABS: Urine Culture Reflex Yes Yes
[2023-08-02] MEDS ORDERED: Ondansetron PF 4 MG/2 ML Vial IVP PRN ×2 (14:45→15:28)
[2023-08-02] MEDS ORDERED: Ondansetron ODT 4 MG TAB SL PRN (14:45)
[2023-08-02] MEDS ORDERED: Lactated Ringer's 1,000 ML IV SCH (14:45)
[2023-08-02] MEDS ORDERED: Acetaminophen 325 MG TAB PO PRN ×2 (14:45→15:28)
[2023-08-02 15:06] VITALS: BMI 28.9
[2023-08-02] MEDS ORDERED: Acetaminophen 650 MG Suppository PR PRN (15:28)
[2023-08-02] MEDS ORDERED: Ondansetron ODT 4 MG TAB PO PRN (15:28)
[2023-08-02] MEDS ORDERED: Vancomycin HCl 125 MG Capsule PO SCH (15:45)
[2023-08-02] MEDS ORDERED: Sodium Chloride 0.9% 1,000 ML IV SCH (15:45)
[2023-08-02] MEDS: DorzolamidE/Timolol 2%/0.5% Ophth Soln 10 ml Bottle EA EYE SCH (21:31)
[2023-08-03] MEDS: Vancomycin HCl 125 MG Capsule PO SCH ×4 (00:41→18:38)
[2023-08-03] MEDS: Levothyroxine Sodium 75 MCG TAB PO SCH (05:46)
[2023-08-03 05:48] LABS: #Basophils 0.1 thou/uL (0.0-0.2); #Eosinphils 1.1 thou/uL (0.0-0.7); #Monocytes 0.8 thou/uL (0.11-0.59); #Neutrophils 11.8 thou/uL (1.40-6.50); %Basophils 0.3 % (0.0-1.0); %Lymphocytes 10.3 % (21.0-51.0); %Monocytes 5.4 % (0.0-10.0); %Neutrophils 76.5 % (42.0-75.0); Hematocrit 38.4 % (42.0-52.0); Hemoglobin 12.2 g/dL (14.0-18.0); Mean Corpuscular HGB CONC 31.8 g/dL (32.0-36.0); Mean Corpuscular Hemoglobin 28.2 pg (27.0-31.0); Mean Corpuscular Volume 88.7 fl (78.0-98.0); Mean Platelet Volume 9.6 fL (7.4-10.4); Platelet Count 183 10x3/uL (130-400); RBC Distribution Width 14.7 % (11.5-14.5); Red Blood Cell (RBC) Count 4.33 mill/uL (4.70-6.10); White Blood Cell (WBC) Count 15.4 10x3/uL (4.8-10.8)
[2023-08-03 06:32] LABS: Anion Gap 14 mmol/L (10-20); BUN (Urea Nitrogen) 16 mg/dL (8.4-25.7); Calc. Creatinine Clearance 64 mL/min (70-130); Calcium 8.7 mg/dL (7.8-10.44); Carbon Dioxide 19 mmol/L (23-31); Chloride 107 mmol/L (98-107); Estimated GFR 66; Glucose 100 mg/dL (83-110); Sodium 136 mmol/L (136-145)
[2023-08-03] MEDS: Donepezil HCl 10 MG TAB PO SCH (09:17)
[2023-08-03] MEDS: Aspirin 81 mg Enteric Coated Tablet PO SCH (09:18)
[2023-08-03] MEDS: DorzolamidE/Timolol 2%/0.5% Ophth Soln 10 ml Bottle EA EYE SCH ×2 (09:18→20:21)
[2023-08-03] MEDS ORDERED: Meropenem 1 GM in Sodium Chloride 0.9% 100 ML IVPB SCH ×2 (17:45→22:00)
[2023-08-04] MEDS: Vancomycin HCl 125 MG Capsule PO SCH ×5 (00:38→23:49)
[2023-08-04] MEDS ORDERED: Meropenem 1 GM in Sodium Chloride 0.9% 100 ML IVPB SCH ×2 (04:00→17:00)
[2023-08-04] MEDS: Levothyroxine Sodium 75 MCG TAB PO SCH (04:53)
[2023-08-04 06:02] LABS: #Basophils 0.1 thou/uL (0.0-0.2); #Eosinphils 0.5 thou/uL (0.0-0.7); #Neutrophils 8.7 thou/uL (1.40-6.50); %Basophils 0.4 % (0.0-1.0); %Eosinophils 3.8 % (0.0-10.0); %Lymphocytes 16.2 % (21.0-51.0); %Neutrophils 71.2 % (42.0-75.0); Hematocrit 36.9 % (42.0-52.0); Hemoglobin 12.1 g/dL (14.0-18.0); Mean Corpuscular HGB CONC 32.8 g/dL (32.0-36.0); Mean Corpuscular Hemoglobin 28.2 pg (27.0-31.0); Mean Platelet Volume 9.7 fL (7.4-10.4); Platelet Count 227 10x3/uL (130-400); RBC Distribution Width 14.7 % (11.5-14.5); Red Blood Cell (RBC) Count 4.29 mill/uL (4.70-6.10); White Blood Cell (WBC) Count 12.2 10x3/uL (4.8-10.8)
[2023-08-04 06:22] LABS: Anion Gap 11 mmol/L (10-20); BUN (Urea Nitrogen) 15 mg/dL (8.4-25.7); Calc. Creatinine Clearance 59 mL/min (70-130); Calcium 8.9 mg/dL (7.8-10.44); Carbon Dioxide 21 mmol/L (23-31); Chloride 105 mmol/L (98-107); Estimated GFR 59; Glucose 93 mg/dL (83-110); Potassium 3.9 mmol/L (3.5-5.1); Sodium 133 mmol/L (136-145)
[2023-08-04] MEDS: Amlodipine 10 MG TAB PO SCH (09:49)
[2023-08-04] MEDS: Cholecalciferol 1,000 UNITS (25 MCG) TAB PO SCH (09:49)
[2023-08-04] MEDS: Aspirin 81 mg Enteric Coated Tablet PO SCH (09:49)
[2023-08-04] MEDS: DorzolamidE/Timolol 2%/0.5% Ophth Soln 10 ml Bottle EA EYE SCH ×2 (09:50→20:56)
[2023-08-04] MEDS: Sertraline 100 MG TAB PO SCH (09:50)
[2023-08-04] MEDS: Donepezil HCl 10 MG TAB PO SCH (09:50)
[2023-08-04] MEDS: Saccharomyces boulardii 250 MG CAP PO SCH (18:08)
[2023-08-05 05:18] LABS: #Basophils 0.1 thou/uL (0.0-0.2); #Eosinphils 1.2 thou/uL (0.0-0.7); #Neutrophils 8.3 thou/uL (1.40-6.50); %Basophils 0.7 % (0.0-1.0); %Eosinophils 9.6 % (0.0-10.0); %Lymphocytes 14.3 % (21.0-51.0); %Monocytes 8.3 % (0.0-10.0); %Neutrophils 66.8 % (42.0-75.0); Hematocrit 40.3 % (42.0-52.0); Hemoglobin 12.8 g/dL (14.0-18.0); Mean Corpuscular HGB CONC 31.8 g/dL (32.0-36.0); Mean Corpuscular Hemoglobin 27.7 pg (27.0-31.0); Mean Corpuscular Volume 87.2 fl (78.0-98.0); Mean Platelet Volume 9.5 fL (7.4-10.4); Platelet Count 237 10x3/uL (130-400); RBC Distribution Width 14.6 % (11.5-14.5); Red Blood Cell (RBC) Count 4.62 mill/uL (4.70-6.10); White Blood Cell (WBC) Count 12.5 10x3/uL (4.8-10.8)
[2023-08-05] MEDS: cefTRIAXone\\ROCEPHIN 1 GM in Sodium Chloride 0.9% 100 ML IVPB SCH (06:08)
[2023-08-05] MEDS: Levothyroxine Sodium 75 MCG TAB PO SCH (06:09)
[2023-08-05] MEDS: Vancomycin HCl 125 MG Capsule PO SCH ×3 (06:10→18:02)
[2023-08-05] MEDS: DorzolamidE/Timolol 2%/0.5% Ophth Soln 10 ml Bottle EA EYE SCH ×2 (09:57→20:39)
[2023-08-05] MEDS: Aspirin 81 mg Enteric Coated Tablet PO SCH (09:59)
[2023-08-05] MEDS: Sertraline 100 MG TAB PO SCH (09:59)
[2023-08-05] MEDS: Donepezil HCl 10 MG TAB PO SCH (09:59)
[2023-08-05] MEDS: Cholecalciferol 1,000 UNITS (25 MCG) TAB PO SCH (10:00)
[2023-08-05] MEDS: Amlodipine 10 MG TAB PO SCH (10:00)
[2023-08-05] MEDS: Saccharomyces boulardii 250 MG CAP PO SCH (18:02)
[2023-08-06] MEDS: Vancomycin HCl 125 MG Capsule PO SCH ×5 (00:14→23:48)
[2023-08-06] MEDS ORDERED: QUEtiapine 25 MG TAB PO SCH (02:00)
[2023-08-06] MEDS: Levothyroxine Sodium 75 MCG TAB PO SCH (04:59)
[2023-08-06] MEDS: cefTRIAXone\\ROCEPHIN 1 GM in Sodium Chloride 0.9% 100 ML IVPB SCH (05:00)
[2023-08-06] MEDS: Aspirin 81 mg Enteric Coated Tablet PO SCH (09:24)
[2023-08-06] MEDS: Sertraline 100 MG TAB PO SCH (09:24)
[2023-08-06] MEDS: Amlodipine 10 MG TAB PO SCH (09:25)
[2023-08-06] MEDS: Cholecalciferol 1,000 UNITS (25 MCG) TAB PO SCH (09:25)
[2023-08-06] MEDS: Donepezil HCl 10 MG TAB PO SCH (09:25)
[2023-08-06] MEDS: DorzolamidE/Timolol 2%/0.5% Ophth Soln 10 ml Bottle EA EYE SCH ×2 (09:26→19:59)
[2023-08-06] MEDS: Saccharomyces boulardii 250 MG CAP PO SCH (17:38)
[2023-08-07] MEDS: cefTRIAXone\\ROCEPHIN 1 GM in Sodium Chloride 0.9% 100 ML IVPB SCH (05:47)
[2023-08-07] MEDS: Levothyroxine Sodium 75 MCG TAB PO SCH (05:47)
[2023-08-07] MEDS: Vancomycin HCl 125 MG Capsule PO SCH ×3 (05:47→16:52)
[2023-08-07] MEDS: Donepezil HCl 10 MG TAB PO SCH (09:04)
[2023-08-07] MEDS: Aspirin 81 mg Enteric Coated Tablet PO SCH (09:05)
[2023-08-07] MEDS: Sertraline 100 MG TAB PO SCH (09:05)
[2023-08-07] MEDS: Cholecalciferol 1,000 UNITS (25 MCG) TAB PO SCH (09:05)
[2023-08-07] MEDS: Amlodipine 10 MG TAB PO SCH (09:05)
[2023-08-07] MEDS: DorzolamidE/Timolol 2%/0.5% Ophth Soln 10 ml Bottle EA EYE SCH ×2 (09:05→21:04)
[2023-08-07] MEDS: Saccharomyces boulardii 250 MG CAP PO SCH (16:52)
[2023-08-08] MEDS: Vancomycin HCl 125 MG Capsule PO SCH ×3 (00:09→13:15)
[2023-08-08] MEDS: Levothyroxine Sodium 75 MCG TAB PO SCH (05:37)
[2023-08-08] MEDS: cefTRIAXone\\ROCEPHIN 1 GM in Sodium Chloride 0.9% 100 ML IVPB SCH (05:38)
[2023-08-08] MEDS: Sertraline 100 MG TAB PO SCH (09:08)
[2023-08-08] MEDS: Aspirin 81 mg Enteric Coated Tablet PO SCH (09:08)
[2023-08-08] MEDS: Amlodipine 10 MG TAB PO SCH (09:08)
[2023-08-08] MEDS: Donepezil HCl 10 MG TAB PO SCH (09:08)
[2023-08-08] MEDS: DorzolamidE/Timolol 2%/0.5% Ophth Soln 10 ml Bottle EA EYE SCH (09:09)
[2023-08-08] MEDS: Cholecalciferol 1,000 UNITS (25 MCG) TAB PO SCH (09:09)
[2023-08-08 13:20] VITALS: BP 122/73; TEMP 97.8
[2023-08-17] MEDS ORDERED: Vancomycin HCl 125 MG Capsule PO SCH (09:00)
[2023-08-24] MEDS ORDERED: Vancomycin HCl 125 MG Capsule PO SCH (09:00)
[2023-09-01] MEDS ORDERED: Vancomycin HCl 125 MG Capsule PO SCH (09:00)
== END 2023-08-08 16:36 | disposition swing bed (61) | DRG 689 ==
LOC: ERS 09:40 → SURG B 13:22 → OBSVTOIN 08-03 17:21 → T4-A 08-06 22:55
PROVIDERS: ADMIT Internal Medicine; ATTEND Family Medicine
PROC: 0T2BX0Z Change Drainage Device in Bladder, External Approach (ICD-10-PCS; principal; 2023-08-08)
DX: N39.0 Urinary tract infection, site not specified (principal); G93.41 Metabolic encephalopathy; A04.72 Enterocolitis due to Clostridium difficile, not specified as recurrent; N17.9 Acute kidney failure, unspecified; I12.9 Hypertensive chronic kidney disease with stage 1 through stage 4 chronic kidney disease, or unspecified chronic kidney disease; E86.0 Dehydration; N40.0 Benign prostatic hyperplasia without lower urinary tract symptoms; B96.89 Other specified bacterial agents as the cause of diseases classified elsewhere; E03.9 Hypothyroidism, unspecified; N18.2 Chronic kidney disease, stage 2 (mild); I25.10 Atherosclerotic heart disease of native coronary artery without angina pectoris; E78.5 Hyperlipidemia, unspecified; F03.90 Unspecified dementia, unspecified severity, without behavioral disturbance, psychotic disturbance, mood disturbance, and anxiety; Z86.73 Personal history of transient ischemic attack (TIA), and cerebral infarction without residual deficits; Z79.899 Other long term (current) drug therapy; Z79.890 Hormone replacement therapy; Z79.82 Long term (current) use of aspirin; Z95.5 Presence of coronary angioplasty implant and graft; Z90.49 Acquired absence of other specified parts of digestive tract; Z90.89 Acquired absence of other organs; Z98.890 Other specified postprocedural states
CPT/HCPCS: 36415; 36416; 70450; 71045; 80048; 80053; 81001; 83605; 83690; 83735; 84484; 85025; 87040; 87077; 87086; 87186; 93005; J0696; J2185; J3490; J7050; J7120

== ENCOUNTER 2024-03-25 02:06 | Emergency (ER) | payer MEDICARE, OTHER ==
[2024-03-25] MEDS ORDERED: Boostrix 0.5 ML (Tdap) VIAL (>/=7 yrs of age) ONE (02:42)
== END 2024-03-25 03:54 ==
LOC: ERS 02:06
DX: S01.01XA Laceration without foreign body of scalp, initial encounter (principal); W18.30XA Fall on same level, unspecified, initial encounter; Y92.129 Unspecified place in nursing home as the place of occurrence of the external cause
CPT/HCPCS: 12001; 36416; 70450; 72125; 90471; 90715; 93005

== ENCOUNTER 2025-04-16 11:38 | Emergency (ER) | payer MEDICARE, OTHER ==
[2025-04-16 12:27] LABS: #Basophils 0.04 10x3/uL (0.0-0.2); #Eosinophils 0.47 10x3/uL (0.0-0.7); #Monocytes 0.74 10x3/uL (0.11-0.59); #Neutrophils 4.74 10x3/uL (1.40-6.50); %Basophils 0.5 % (0.0-1.0); %Eosinophils 6.1 % (0.0-10.0); %Lymphocytes 21.6 % (21.0-51.0); %Monocytes 9.6 % (0.0-10.0); %Neutrophils 61.9 % (42.0-75.0); Hematocrit 39.8 % (42.0-52.0); Hemoglobin 12.6 g/dL (14.0-18.0); Mean Corpuscular Hemoglobin 27.9 pg (27.0-31.0); Mean Corpuscular Volume 88.1 fL (78.0-98.0); Platelet Count 155 10x3/uL (130-400); Red Blood Cell (RBC) Count 4.52 mill/uL (4.70-6.10); White Blood Cell (WBC) Count 7.67 10x3/uL (4.8-10.8)
[2025-04-16 12:46] LABS: ALT (SGPT) 13 U/L (Less than 45); AST (SGOT) 23 U/L (11-34); Albumin 3.6 g/dL (3.1-4.5); Alkaline Phosphatase 87 U/L (40-110); Anion Gap 11 mmol/L (10-20); BUN (Urea Nitrogen) 19 mg/dL (8.4-25.7); Bilirubin, Total 0.3 mg/dL (0.3-1.2); Calc. Creatinine Clearance 0 mL/min (70-130); Calcium 9.1 mg/dL (7.8-10.44); Carbon Dioxide 26 mmol/L (23-31); Chloride 109 mmol/L (98-107); Globulin 3.3 g/dL (2.4-3.5); Glucose 107 mg/dL (83-110); Potassium 3.9 mmol/L (3.5-5.1); Sodium 142 mmol/L (136-145)
[2025-04-16 13:40] LABS: Bacteria/HPF 2+ HPF (None Seen); CAUTI Indications for Culture Dysuria,urgency,freq; Glucose, Urine (Dipstick) Normal (Negative); Leukocyte 500 Leu/uL (Negative); Protein, Urine (Dipstick) 10 mg/dL (Neg-Trace); RBC/HPF 0-3 HPF (0-3); Specific Gravity, Urine 1.009 (1.002-1.036); WBC/HPF 21-50 HPF (0-3)
[2025-04-16 13:41] LABS: Urine Culture Reflex Yes Yes
== END 2025-04-16 16:20 | disposition home or self-care (01) ==
LOC: ERS 11:38
DX: S50.311A Abrasion of right elbow, initial encounter (principal); R19.7 Diarrhea, unspecified; N39.0 Urinary tract infection, site not specified; I10 Essential (primary) hypertension; E78.5 Hyperlipidemia, unspecified; E03.9 Hypothyroidism, unspecified; J45.909 Unspecified asthma, uncomplicated; W18.30XA Fall on same level, unspecified, initial encounter; Z79.899 Other long term (current) drug therapy; Z79.51 Long term (current) use of inhaled steroids; Z79.82 Long term (current) use of aspirin
CPT/HCPCS: 36415; 70450; 80053; 81001; 83605; 85025; 87040; 87077; 87086; 93005